=== PATIENT | male | born 1985 | race Asian ===

== ENCOUNTER 2024-11-03 16:13 | Inpatient (IN) | payer MEDICAID ==
[~2024-11-03] VITALS: Ht 165.1 cm; Wt 91.0 kg
[2024-11-03 17:22] LABS: PLATELET COUNT (AUTO) 385 K/uL (150-450); RED BLOOD CELL COUNT(AUTO) 5.63 MIL/uL (4.50-5.90); RED CELL DISTRIBUTION WIDTH 15.0 % (11.5-14.5); WHITE BLOOD COUNT (AUTO) 13.6 K/uL (4.5-11.0)
[2024-11-03 17:31] LABS: CALCIUM, TOTAL 9.2 mg/dL (8.8-10.5); CREATININE 1.20 mg/dL (0.60-1.30); GLOMERULAR FILTR. RATE CALC > 60 mL/min (>60); GLUCOSE,RANDOM 102 mg/dL (70-110); UREA NITROGEN, BLOOD 15 mg/dL (7-18)
[2024-11-03 17:36] LABS: SODIUM SERUM 143 mmol/L (136-145)
[2024-11-03] MEDS: SODIUM CHLORIDE 0.9% 1,000 ML IV ONE (18:58)
[2024-11-03] MEDS: ALBUTEROL SULFATE 2.5 MG/0.5 ML NEB SOLUTION NEB ONE (19:16)
[2024-11-03] MEDS: IPRATROPIUM BROMIDE 0.5 MG/2.5 ML NEB SOLUTION NEB ONE (19:16)
[2024-11-03 19:23] VITALS: PULSE 95; RESP 18; O2SAT 96
[2024-11-03 19:35] VITALS: PULSE 95; RESP 18; O2SAT 98
[2024-11-03 23:28] LABS: TROPONIN I-HIGH SENSITIVITY 11 ng/L (<76)
[2024-11-03] MEDS ORDERED: ZOLPIDEM TARTRATE 5 MG TABLET PO PRN (23:30)
[2024-11-03] MEDS ORDERED: ACETAMINOPHEN 325 MG TABLET PO PRN (23:30)
[2024-11-03] MEDS ORDERED: BISACODYL 10 MG RECTAL RECTAL SUPPOSITORY PR PRN (23:30)
[2024-11-03] MEDS ORDERED: HYDROCODONE/ACETAMINOPHEN 5-325 MG TABLET PO PRN (23:30)
[2024-11-03] MEDS ORDERED: MAGNESIUM HYDROXIDE SUSPENSION 30 ML UDCUP PO PRN (23:30)
[2024-11-03] MEDS ORDERED: ONDANSETRON HCL 4 MG/2 ML VIAL IVP PRN (23:30)
[2024-11-03] MEDS ORDERED: MORPHINE SULFATE 2 MG/ML SYRINGE IVP PRN (23:30)
[2024-11-04] VITALS (8 sets, daily range): BP systolic 153–168; BP diastolic 106–128; PULSE 77–104; RESP 16–19; TEMP 96.1–98.1; O2SAT 95–99
[2024-11-04] MEDS: HEPARIN SODIUM,PORCINE 5,000 UNITS/ML VIAL SQ SCH
[2024-11-04] MEDS: DOCUSATE SODIUM 100 MG CAPSULE PO SCH (08:24)
[2024-11-04] MEDS: PANTOPRAZOLE SODIUM 40 MG DR TABLET PO SCH (08:24)
[2024-11-04 09:46] LABS: APPEARANCE,URINE CLEAR (CLEAR); GLUCOSE, URINE (UA) NEGATIVE (NEGATIVE); LEUKOCYTE ESTERASE ,URINE NEGATIVE (NEGATIVE); NITRATE,URINE NEGATIVE (NEGATIVE); OCCULT BLOOD,URINE NEGATIVE (NEGATIVE); PH,URINE DRUG SCREEN 5.5 (5.0-8.0); SPECIFIC GRAVITIY, URINE 1.017 (1.003-1.030)
[2024-11-04 09:52] LABS: ALCOHOL, URINE DRUG SCREEN NEGATIVE (NEGATIVE); AMPHET/METH SCREEN,URINE NEGATIVE (NEGATIVE); BARBITURATE SCREEN, URINE NEGATIVE (NEGATIVE); CANNABINOID SCREEN,URINE NEGATIVE (NEGATIVE); COCAINE SCREEN,URINE NEGATIVE (NEGATIVE); METHADONE SCREEN, URINE NEGATIVE (NEGATIVE)
[2024-11-04 17:55] LABS: COVID AG,FIA SOURCE NASAL SWAB
[2024-11-04 18:12] LABS: SARS-COV2 (COVID) ANTIGEN,FIA Negative (Negative)
[2024-11-05] VITALS (7 sets, daily range): BP systolic 124–167; BP diastolic 90–119; PULSE 73–86; RESP 18–19; TEMP 97.5–97.9; O2SAT 97
[2024-11-05 06:19] LABS: PLATELET COUNT (AUTO) 376 K/uL (150-450); RED BLOOD CELL COUNT(AUTO) 5.40 MIL/uL (4.50-5.90); RED CELL DISTRIBUTION WIDTH 15.0 % (11.5-14.5); WHITE BLOOD COUNT (AUTO) 14.4 K/uL (4.5-11.0)
[2024-11-05 06:40] LABS: CALCIUM, TOTAL 8.7 mg/dL (8.8-10.5); CREATININE 0.84 mg/dL (0.60-1.30); GLOMERULAR FILTR. RATE CALC > 60 mL/min (>60); GLUCOSE,RANDOM 99 mg/dL (70-110); SODIUM SERUM 139 mmol/L (136-145); UREA NITROGEN, BLOOD 19 mg/dL (7-18)
== END 2024-11-05 14:10 | disposition left against medical advice (07) | DRG 199 ==
LOC: EMS 16:13 → EDH 23:22 → 5S 11-04 03:00
PROVIDERS: ADMIT Internal Medicine; ATTEND Internal Medicine
DX: I16.0 Hypertensive urgency (principal); D72.829 Elevated white blood cell count, unspecified; G47.33 Obstructive sleep apnea (adult) (pediatric); Z20.822 Contact with and (suspected) exposure to COVID-19; I10 Essential (primary) hypertension; J45.909 Unspecified asthma, uncomplicated
CPT/HCPCS: 71045; 80048; 80307; 81001; 83880; 84484; 85025; 93005; 94640; 96361; 96374; 99285; G0378; J0360; J1644; J7030; 36415-L1; 36415-TC; J7613